=== PATIENT | male | born 1990 | race Caucasian/White ===

== ENCOUNTER 2021-08-24 11:43 | Inpatient (IN) | payer OTHER ==
[~2021-08-24] VITALS: Ht 182.9 cm; Wt 149.7 kg
[~2021-08-24 11:43] MED LIST: NIZORAL 2% CREA15 GM TOP
[2021-08-24 12:09] LABS: HEMOGLOBIN 14.4 gm/dl (14.0-17.5); RED BLOOD COUNT 5.11 M/UL (4.20-5.50); WHITE BLOOD COUNT 7.6 K/UL (4.5-11.0)
[2021-08-24 12:32] LABS: BUN/CREATININE RATIO 12 (0-10)
[2021-08-24] MEDS ORDERED: FLUOXETINE HCL20 M1 PO (13:52)
[2021-08-24] MEDS ORDERED: ONDANSETRON HCL4 MG PO (13:52)
[2021-08-24] MEDS ORDERED: TIZANIDINE HCL4 MG PO (13:53)
[2021-08-24] MEDS ORDERED: GABAPENTIN600 MG PO (13:53)
[2021-08-24] MEDS ORDERED: COZAAR50 MG PO (13:53)
[2021-08-24] MEDS ORDERED: HYDROXYZINE HCL50 MG PO (13:54)
[2021-08-25 05:06] LABS: BUN/CREATININE RATIO 11 (0-10)
--- NOTE | 2021-08-25 19:05 | NUR ---
PT TALKED TO ABOUT THE RESULTS TODAY WITH THE STRESS TEST. HE TOLD HIM THAT THE SECOND PART OF THE STRESS TEST WOULD HAVE TO BE DONE TOMORROW. THE PATIENT STATED THAT HE WOULD NOT BE ABLE TO STAY ANOTHER DAY DUE TO HIS WORK. HE SAID THAT HE WOULD LOSE HIS JOB AND HAD TO LEAVE. WAS NOTIFIED AND DR. CAMPOS WAS CALLED BUT NOT REACHED. PT WAS TOLD OF ALL OF HIS RISK AND STILL WANTED TO LEAVE ANYWAYS. AMA PAPERS WERE SIGNED AND IV WAS TAKEN OUT.
== END 2021-08-25 19:00 | disposition left against medical advice (07) | DRG 281 ==
LOC: ER1 11:43 → CDU 15:26 → PROG CARE 17:27
PROVIDERS: Emergency Medicine; ADMIT Internal Medicine Infectious Disease
PROC: B24BZZZ Ultrasonography of Heart with Aorta (ICD-10-PCS; principal; 2021-08-25)
DX: I21.4 Non-ST elevation (NSTEMI) myocardial infarction (principal); Z68.41 Body mass index [BMI] 40.0-44.9, adult; F17.290 Nicotine dependence, other tobacco product, uncomplicated; Z20.822 Contact with and (suspected) exposure to COVID-19; I10 Essential (primary) hypertension; E78.5 Hyperlipidemia, unspecified; G89.29 Other chronic pain; F41.9 Anxiety disorder, unspecified; E66.9 Obesity, unspecified; M54.9 Dorsalgia, unspecified; F32.A Depression, unspecified; Z98.890 Other specified postprocedural states; Z82.49 Family history of ischemic heart disease and other diseases of the circulatory system
CPT/HCPCS: ECHO; 36415; 71045; 78452; 80053; 80061; 82550; 82553; 84484; 85025; 85610; 85730; 93005; 93017; 93306; 96374; 96376; 99285; A9502; J1644